=== PATIENT | male | born 1985 | race Caucasian/White ===

== ENCOUNTER 2020-02-23 09:36 | Outpatient (REF) | payer BC, SELFPAY | END 2020-02-23 09:37 | disposition home or self-care (01) | LOC: HO.WFDLDS 09:36 | PROVIDERS: Visit Provider Internal Medicine | DX: Z20.822 Contact with and (suspected) exposure to COVID-19 (principal) | CPT/HCPCS: 36415; C9803; U0003 ==

== ENCOUNTER 2020-06-10 | Outpatient (REF) | payer BC, SELFPAY | END 2020-06-10 00:01 | disposition home or self-care (01) | LOC: HO.LNP | PROVIDERS: Visit Provider Family Medicine | DX: Z13.89 Encounter for screening for other disorder (principal) ==